=== PATIENT | female | born 1985 | race Caucasian/White ===

== ENCOUNTER → 2017-07-07 | Outpatient (CLI) | payer BC, OTHER ==
[2017-07-07 09:32] LABS: HEMOGLOBIN 11.7 g/dL (12.2-16.2)
[2017-07-07 10:19] LABS: ABO BLOOD TYPE O; RH BLOOD TYPE NEGATIVE
== END ==
LOC: LAB 08:40
PROVIDERS: Nurse Practitioner Obstetrics & Gynecology
DX: Z34.80 Encounter for supervision of other normal pregnancy, unspecified trimester (principal); O99.810 Abnormal glucose complicating pregnancy
CPT/HCPCS: J2790